=== PATIENT | female | born 1990 | race Caucasian/White ===

== ENCOUNTER 2018-01-16 17:52 | Emergency (ER) | payer OTHER ==
[~2018-01-16] VITALS: Ht 154.9 cm; Wt 64.0 kg
== END 2018-01-16 20:36 | disposition home or self-care (01) ==
LOC: ER 17:52
DX: O20.8 Other hemorrhage in early pregnancy (principal); Z34.02 Encounter for supervision of normal first pregnancy, second trimester

== ENCOUNTER 2018-06-15 19:28 | Inpatient (IN) | payer OTHER ==
[~2018-06-15] VITALS: Ht 154.9 cm; Wt 3.6 kg
[2018-06-15] MEDS ORDERED: PRENATAL 19 TA1 EAC1 PO (23:10)
[2018-06-15] MEDS ORDERED: ASA81 MG (23:12)
[2018-06-15] MEDS ORDERED: HUMULIN N100 UNIT/2 (23:16)
[2018-06-15] MEDS ORDERED: HUMALOG100 UNIT/1 SUBCUTANEO (23:21)
== END 2018-06-19 11:13 | disposition home or self-care (01) | DRG 788 ==
LOC: OB/GYN 19:28 → LDR 19:28 → O/R 06-16 18:46 → OB/GYN 06-16 22:06
PROVIDERS: ADMIT Obstetrics & Gynecology
PROC: 3E0P7VZ Introduction of Hormone into Female Reproductive, Via Natural or Artificial Opening (ICD-10-PCS; 2018-06-15)
PROC: 4A1HXCZ Monitoring of Products of Conception, Cardiac Rate, External Approach (ICD-10-PCS; 2018-06-15)
PROC: 10907ZC Drainage of Amniotic Fluid, Therapeutic from Products of Conception, Via Natural or Artificial Opening (ICD-10-PCS; 2018-06-16)
PROC: 3E033VJ Introduction of Other Hormone into Peripheral Vein, Percutaneous Approach (ICD-10-PCS; 2018-06-16)
PROC: 10D00Z1 Extraction of Products of Conception, Low, Open Approach (ICD-10-PCS; principal; 2018-06-16 20:00)
DX: O61.0 Failed medical induction of labor (principal); Z3A.38 38 weeks gestation of pregnancy; Z37.0 Single live birth; Z22.330 Carrier of Group B streptococcus; O24.424 Gestational diabetes mellitus in childbirth, insulin controlled

== ENCOUNTER → 2020-02-14 | Outpatient (CLI) | payer OTHER ==
[~2020-02-14] MED LIST: ASA81 MG; HUMALOG100 UNIT/1 SUBCUTANEO; HUMULIN N100 UNIT/2; PRENATAL 19 TA1 EAC1 PO
== END | disposition home or self-care (01) ==
LOC: PRENATAL 10:30
PROVIDERS: ATTEND Obstetrics & Gynecology Maternal & Fetal Medicine
DX: O26.851 Spotting complicating pregnancy, first trimester (principal); O24.311 Unspecified pre-existing diabetes mellitus in pregnancy, first trimester; O36.80X1 Pregnancy with inconclusive fetal viability, fetus 1; Z36.89 Encounter for other specified antenatal screening; Z3A.08 8 weeks gestation of pregnancy

== ENCOUNTER → 2020-03-19 | Outpatient (CLI) | payer OTHER | END | disposition home or self-care (01) | LOC: PRENATAL 10:47 | PROVIDERS: ATTEND Obstetrics & Gynecology Maternal & Fetal Medicine | DX: O26.851 Spotting complicating pregnancy, first trimester (principal); O24.311 Unspecified pre-existing diabetes mellitus in pregnancy, first trimester; O36.80X1 Pregnancy with inconclusive fetal viability, fetus 1; Z36.89 Encounter for other specified antenatal screening; Z3A.12 12 weeks gestation of pregnancy ==

== ENCOUNTER → 2020-05-14 | Outpatient (CLI) | payer OTHER | END | disposition home or self-care (01) | LOC: PRENATAL 08:00 | PROVIDERS: ATTEND Obstetrics & Gynecology Maternal & Fetal Medicine | DX: O35.0XX1 Maternal care for (suspected) central nervous system malformation in fetus, fetus 1 (principal); O35.3XX1 Maternal care for (suspected) damage to fetus from viral disease in mother, fetus 1; O98.512 Other viral diseases complicating pregnancy, second trimester; O24.312 Unspecified pre-existing diabetes mellitus in pregnancy, second trimester; Z36.89 Encounter for other specified antenatal screening; Z3A.20 20 weeks gestation of pregnancy ==

== ENCOUNTER → 2020-07-09 | Outpatient (CLI) | payer OTHER | END | disposition home or self-care (01) | LOC: PRENATAL 10:30 | PROVIDERS: ATTEND Obstetrics & Gynecology Maternal & Fetal Medicine | DX: O26.843 Uterine size-date discrepancy, third trimester (principal); O24.313 Unspecified pre-existing diabetes mellitus in pregnancy, third trimester; O99.213 Obesity complicating pregnancy, third trimester; Z36.89 Encounter for other specified antenatal screening; Z3A.30 30 weeks gestation of pregnancy ==

== ENCOUNTER → 2020-08-06 | Outpatient (CLI) | payer OTHER | END | disposition home or self-care (01) | LOC: PRENATAL 11:27 | PROVIDERS: ATTEND Obstetrics & Gynecology Maternal & Fetal Medicine | DX: O26.843 Uterine size-date discrepancy, third trimester (principal); O24.313 Unspecified pre-existing diabetes mellitus in pregnancy, third trimester; O99.213 Obesity complicating pregnancy, third trimester; O40.3XX1 Polyhydramnios, third trimester, fetus 1; Z36.89 Encounter for other specified antenatal screening; Z3A.35 35 weeks gestation of pregnancy ==

== ENCOUNTER 2020-08-20 02:38 | Outpatient (CLI) | payer OTHER ==
[2020-08-20] MEDS ORDERED: HUMULIN N100 UNIT/2 SUBCUTANEO ×2 (03:05→03:06)
[2020-08-20] MEDS ORDERED: HUMULIN R100 UNIT/1 SUBCUTANEO ×2 (03:07→03:11)
== END 2020-08-20 08:43 | disposition home or self-care (01) ==
LOC: OBS/DEL 02:38 → PRENATAL 09-03 16:00
PROVIDERS: ATTEND Obstetrics & Gynecology
DX: O24.913 Unspecified diabetes mellitus in pregnancy, third trimester (principal); Z3A.34 34 weeks gestation of pregnancy

== ENCOUNTER → 2020-09-03 | Outpatient (CLI) | payer OTHER ==
[~2020-09-03] MED LIST changes: +HUMULIN N100 UNIT/2 SUBCUTANEO; +HUMULIN R100 UNIT/1 SUBCUTANEO
== END | disposition home or self-care (01) ==
LOC: PRENATAL 11:30
PROVIDERS: ATTEND Obstetrics & Gynecology Maternal & Fetal Medicine
DX: O26.843 Uterine size-date discrepancy, third trimester (principal); O24.313 Unspecified pre-existing diabetes mellitus in pregnancy, third trimester; O40.3XX1 Polyhydramnios, third trimester, fetus 1; O99.213 Obesity complicating pregnancy, third trimester; Z36.89 Encounter for other specified antenatal screening; Z3A.37 37 weeks gestation of pregnancy

== ENCOUNTER 2020-09-05 12:47 | Inpatient (IN) | payer OTHER ==
[~2020-09-05] VITALS: Ht 154.9 cm; Wt 90.7 kg
== END 2020-09-08 14:15 | disposition home or self-care (01) | DRG 788 ==
LOC: OB/GYN 12:47 → LDR 12:47 → O/R 16:15 → OB/GYN 18:29
PROVIDERS: ADMIT Obstetrics & Gynecology; ATTEND Obstetrics & Gynecology
PROC: 4A1HXFZ Monitoring of Products of Conception, Cardiac Rhythm, External Approach (ICD-10-PCS; 2020-09-05)
PROC: 10D00Z1 Extraction of Products of Conception, Low, Open Approach (ICD-10-PCS; principal; 2020-09-05 13:15)
DX: O42.013 Preterm premature rupture of membranes, onset of labor within 24 hours of rupture, third trimester (principal); O24.420 Gestational diabetes mellitus in childbirth, diet controlled; O34.211 Maternal care for low transverse scar from previous cesarean delivery; Z3A.36 36 weeks gestation of pregnancy; Z37.0 Single live birth; Z20.822 Contact with and (suspected) exposure to COVID-19